=== PATIENT | male | born 1960 | race Caucasian/White ===

== ENCOUNTER → 2020-01-23 | Outpatient (REF) | payer OTHER | LOC: M SMT 12:51 → MERGE 12:51 | PROVIDERS: ATTEND Urology | DX: R31.29 Other microscopic hematuria (principal); R82.89 Other abnormal findings on cytological and histological examination of urine ==

== ENCOUNTER 2020-02-04 10:55 | Day surgery (SDC) | payer OTHER ==
[~2020-02-04] VITALS: Ht 175.3 cm; Wt 100.7 kg
[~2020-02-04 10:55] MED LIST: ASPI81TA85 PO; CETI10CH PO; EMLA CREAM 5GM (LIDOCAINE/PRILOCAINE) TOP PRN; FLUT15.820; LIDOCAINE 1% MDV 20ML VIAL SQ PRN; LISI10TA4 PO; LR 1,000 ML IV ONE; METF500T13 PO; ROSU5TAB5 PO; VENTAER INH; VITAD1000T PO; ceFAZolin SOD 2 GM in IV 1 EA IV ONE
[2020-02-04] MEDS ORDERED: dexameTHASONE 4 MG/ML 1ML VIAL (J1100 PER 1MG) As Ordered ONE (11:54)
[2020-02-04] MEDS ORDERED: ONDANSETRON 4MG/2ML VIAL (J2405) As Ordered ONE (11:54)
[2020-02-04] MEDS ORDERED: ROCURONIUM BROMIDE 50 MG/5 ML VIAL As Ordered ONE (11:54)
[2020-02-04] MEDS ORDERED: LIDOCAINE 2% INJ 100 MG/5 ML SDV (FOR ANES.) As Ordered ONE (11:55)
[2020-02-04] MEDS ORDERED: propofoL 200 MG/20 ML VIAL As Ordered ONE (11:55)
[2020-02-04] MEDS ORDERED: fentaNYL 100 MCG/2 ML INJECTION (J3010) As Ordered ONE ×2 (12:45→13:44)
[2020-02-04] MEDS ORDERED: MIDAZOLAM INJ 2 MG/2 ML VIAL (J2250) As Ordered ONE (12:45)
[2020-02-04] MEDS ORDERED: CONRAY-60 60% 50ML VIAL (Q9961) As Ordered ONE (13:06)
[2020-02-04] MEDS ORDERED: ACETAMINOPHEN 1000MG 100ML IV BTL (OFIRMEV) (J0131 PER 10MG) As Ordered ONE (13:44)
[2020-02-04] MEDS ORDERED: SUGAMMADEX SODIUM 500 MG/5 ML VIAL (BRIDION) As Ordered ONE (13:47)
[2020-02-04] MEDS ORDERED: HYDROmorphone HCL 2 MG/ML 1ML VIAL (J1170) As Ordered ONE (14:24)
[2020-02-04] MEDS ORDERED: FUROSEMIDE 100 MG/10 ML VIAL (J1940) As Ordered ONE (14:52)
[2020-02-04] MEDS ORDERED: ONDANSETRON 4MG/2ML VIAL (J2405) IV PRN (15:45)
[2020-02-04] MEDS ORDERED: PERCOCET 5MG/325MG TAB PO PRN (15:45)
[2020-02-04] MEDS ORDERED: METOCLOPRAMIDE INJ 10MG/2ML VIAL (J2765) IV PRN (15:45)
[2020-02-04] MEDS ORDERED: LR 1,000 ML IV SCH (15:45)
[2020-02-04] MEDS ORDERED: MEPERIDINE INJ 25 MG/ML VIAL (J2175) IV PRN (15:45)
[2020-02-04] MEDS ORDERED: oxyCODONE 5MG TAB PO PRN (15:45)
[2020-02-04] MEDS ORDERED: fentaNYL 100 MCG/2 ML INJECTION (J3010) IV PRN (15:45)
--- NOTE | 2020-02-04 17:05 | REP ---
BILATERAL RETROGRADE PYELOGRAM: 10 C-Arm views are performed. Contrast is injected into both distal ureters. The right pelvicaliceal system and right ureter appear relatively normal in configuration with no filling defect. No ureteral stenosis is visualized. There is no hydroureteronephrosis on the right. Left ureter is mild to moderately dilated. Left pelvicaliceal system is moderately dilated. It is partially opacified with no gross filling defect. I cannot exclude stenosis at the distal end of the left ureter. A left ureteral stent is placed. The proximal end is in the left renal pelvis and the distal end is in the urinary bladder. 12 seconds fluoroscopy time utilized. Electronically Signed by Yaniv Solorio MD 02/05/2020 09:25 A
--- NOTE | 2020-02-04 19:35 | RO ---
DATE OF PROCEDURE: 02/04/2020 PREPROCEDURE DIAGNOSIS: Bladder tumors, gross hematuria. POSTPROCEDURE DIAGNOSIS: Bladder tumors, gross hematuria. PROCEDURE: Cystoscopy, transurethral resection of bladder tumors (greater than 5 cm), bilateral retrograde pyelograms with intraoperative interpretation of images, left ureteral stent placement, urethral meatal dilation, examination under anesthesia. SURGEON: Dr. Ye Goldsmith [employer] SUPERVISOR: None. ANESTHESIA: General. OPERATIVE INDICATIONS: This is a 59-year-old male who was seen in our office with gross hematuria and also on recent CAT scan had areas in his bladder concerning for bladder tumors. He was brought to the operating room today for treatment. DESCRIPTION OF PROCEDURE: The patient was brought to the operating room and general anesthesia was induced. Prophylactic antibiotics were infused. He was placed in the dorsal lithotomy position and a bimanual digital rectal examination was performed. This was notable for a 30-40 gram prostate with no nodules. The bladder was freely mobile, and there were no palpable bladder masses. He was then prepped and draped in the usual sterile fashion. At this point, I attempted to advance in a rigid cystoscope and it would not go into the meatus due to it being too narrow. I therefore dilated the meatus to 30 Filipino using curved metal sounds. I then advanced the scope toward the bladder. Of note, as the scope was advanced through the prostatic urethra, the patient had papillary tumors growing circumferentially at the bladder neck. Once inside the bladder, it was thoroughly examined with both the 30- and the 70-degree lenses. There were several papillary tumors throughout the bladder with the majority of the tumors on the left lateral wall growing down over onto the left hemitrigone. There were also tumors on the anterior wall, as well as tumors growing around the bladder neck. After the bladder was examined, a 5-Filipino open-ended ureteral catheter was utilized to obtain bilateral retrograde pyelograms. The right retrograde pyelogram was negative for filling defects or extravasation or hydronephrosis. The left retrograde pyelogram was negative for filling defects or extravasation, but it was notable for mild to moderate left hydroureteronephrosis down to the level of the bladder. At this point, I traded out the cystoscope for a resectoscope and all of the tumors inside the bladder were resected completely. The base of resection in each area was cauterized with good hemostasis. An [employer] evacuator was utilized to evacuate all of the bladder tumors out of the bladder. Of note, I did have to resect over the left ureteral orifice. Once I was done removing all the tumors, I advanced a wire up the left collecting system, and then advanced a 7-Filipino x 22-32 cm JJ ureteral stent up into the left collecting system. The wire was removed, and there were adequate curls of the stent in the left renal pelvis and in the bladder. At this point, I checked for hemostasis once more, and I confirmed all the visible tumors in the bladder were removed and this was the case. After that was done, the resectoscope was removed, and the 18-Filipino Fournier catheter was inserted into the bladder. The balloon was the filled with 10 mL of sterile water, and the catheter was connected to gravity drainage, and this marked the conclusion of the procedure. The patient was then taken out of the dorsal lithotomy position, awakened from anesthesia, and transferred to the recovery room in stable condition. Estimated blood loss: 5 mL. Complications: None. Specimens: Bladder tumors. PLAN: The patient will followup in the clinic in approximately 1 week for catheter removal. Depending on what his pathology shows, this will dictate when the stent is removed and whether or not he needs additional treatment. SANTY
== END 2020-02-04 17:06 | disposition home or self-care (01) ==
LOC: M SDC 10:55 → MERGE 12:30 → M SDC 17:06
PROVIDERS: ATTEND Urology
DX: C67.9 Malignant neoplasm of bladder, unspecified (principal); N32.9 Bladder disorder, unspecified; I10 Essential (primary) hypertension; E11.9 Type 2 diabetes mellitus without complications; K21.9 Gastro-esophageal reflux disease without esophagitis; Z79.84 Long term (current) use of oral hypoglycemic drugs; Z79.82 Long term (current) use of aspirin; Z79.899 Other long term (current) drug therapy
CPT/HCPCS: 52240; 52332; 74420; 88305; C1769; C2617; J0131; J0690; J1100; J1170; J1940; J2250; J2405; J3010; Q9961

== ENCOUNTER → 2020-03-10 | Outpatient (CLI) | payer OTHER ==
[~2020-03-10] MED LIST changes: +ACET-683 PO; -EMLA CREAM 5GM (LIDOCAINE/PRILOCAINE) TOP PRN; -LIDOCAINE 1% MDV 20ML VIAL SQ PRN; -LR 1,000 ML IV ONE; -ceFAZolin SOD 2 GM in IV 1 EA IV ONE
== END ==
LOC: M LABSMTC 10:48
PROVIDERS: ATTEND Anesthesiology
DX: Z01.818 Encounter for other preprocedural examination (principal); Z11.59 Encounter for screening for other viral diseases
CPT/HCPCS: C8903; U0003

== ENCOUNTER 2020-03-13 11:23 | Day surgery (SDC) | payer OTHER ==
[~2020-03-13] VITALS: Ht 175.3 cm; Wt 95.3 kg
[~2020-03-13 11:23] MED LIST changes: +LIDOCAINE 1% MDV 20ML VIAL SQ PRN; +LR 1,000 ML IV ONE; +ceFAZolin SOD 2 GM in IV 1 EA IV ONE
[2020-03-13] MEDS ORDERED: ROCURONIUM BROMIDE 50 MG/5 ML VIAL As Ordered ONE (13:27)
[2020-03-13] MEDS ORDERED: LIDOCAINE 2% 100MG/5ML SDV (FOR ANES.) As Ordered ONE (13:27)
[2020-03-13] MEDS ORDERED: dexameTHASONE 4 MG/ML 1ML VIAL (J1100 PER 1MG) As Ordered ONE (13:27)
[2020-03-13] MEDS ORDERED: ONDANSETRON 4MG/2ML VIAL As Ordered ONE (13:27)
[2020-03-13] MEDS ORDERED: propofoL 200 MG/20 ML VIAL As Ordered ONE (13:27)
[2020-03-13] MEDS ORDERED: MIDAZOLAM INJ 2MG/2ML VIAL (J2250 PER 1MG) As Ordered ONE (13:28)
[2020-03-13] MEDS ORDERED: fentaNYL 100 MCG/2 ML INJECTION (J3010) As Ordered ONE ×3 (13:28→15:57)
[2020-03-13] MEDS ORDERED: ACETAMINOPHEN 1000MG 100ML IV BTL (OFIRMEV) (J0131 PER 10MG) As Ordered ONE (14:56)
[2020-03-13] MEDS ORDERED: SUGAMMADEX SODIUM 500 MG/5 ML VIAL (BRIDION) As Ordered ONE (15:00)
[2020-03-13] MEDS ORDERED: LABETALOL 100MG/20ML VIAL As Ordered ONE (15:04)
[2020-03-13] MEDS ORDERED: ALBUTEROL 6.7GM INHALER **FOR ANES. CART/OMNICELL ONLY As Ordered ONE (15:14)
[2020-03-13] MEDS ORDERED: oxyCODONE 5MG TAB As Ordered ONE (15:56)
[2020-03-13] MEDS ORDERED: ALBUTEROL SULFATE 2.5 MG/0.5 ML INH NEB SOLN As Ordered ONE (15:57)
[2020-03-13] MEDS: fentaNYL 100 MCG/2 ML INJECTION (J3010) IV PRN ×4 (15:58→16:17)
[2020-03-13] MEDS ORDERED: ONDANSETRON 4MG/2ML VIAL IV PRN (16:00)
[2020-03-13] MEDS ORDERED: ACETAMINOPHEN TAB 650MG DOSE (2X325MG) PO PRN (16:00)
[2020-03-13] MEDS ORDERED: LR 1,000 ML IV SCH (16:00)
[2020-03-13] MEDS ORDERED: oxyCODONE 5MG TAB PO PRN (16:00)
[2020-03-13] MEDS ORDERED: HYDROMORPHONE HCL 0.5 MG/ 0.5 ML SYRINGE (J1170 PER 1) As Ordered ONE (16:20)
[2020-03-13] MEDS: HYDROMORPHONE HCL 0.5 MG/ 0.5 ML SYRINGE (J1170 PER 1) IV PRN ×4 (16:24→17:00)
[2020-03-13] MEDS ORDERED: ALBUTEROL SULFATE 2.5 MG/0.5 ML INH NEB SOLN INH ONE (17:00)
[2020-03-13] MEDS ORDERED: oxyBUTYnin 5 MG TAB PO ONE (17:30)
[2020-03-13] MEDS ORDERED: KETOROLAC 30 MG/ML 1ML VIAL IV PRN (17:30)
[2020-03-13 19:20] VITALS: BP 143/94
--- NOTE | 2020-03-17 16:49 | RO ---
DATE OF PROCEDURE: 03/13/2020 PREPROCEDURE DIAGNOSIS: Bladder cancer. POSTPROCEDURE DIAGNOSIS: Bladder cancer. PROCEDURE: Cystoscopy, restaging transurethral resection of bladder tumors (between 2-5 cm), removal of left ureteral stent. SURGEON: Ye Goldsmith MD ORTHOPEDIC PHYSICIAN ASSISTANT: None. ANESTHESIA: General. OPERATIVE INDICATIONS: This is a 59-year-old male who was diagnosed with high grade bladder cancer invading the lamina propria but not involving the muscularis propria based on a transurethral resection of bladder approximately 6 weeks ago. Given the stage it was recommended he be brought back for a restaging transurethral resection to confirm that he does not have muscle invasion. We also intended to remove his stent at this time. DESCRIPTION OF PROCEDURE: The patient was brought to the operating room and general anesthesia was induced. Prophylactic antibiotics were infused. He was then placed in the dorsal lithotomy position and prepped and draped in the usual sterile fashion. At this point, a resectoscope was inserted into the urethral meatus and advanced into the bladder using the visual obturator. The bladder was then thoroughly examined and no definite tumors were seen inside the bladder. The left ureteral stent was seen. At this point, I resected once again on the left lateral wall and around the ureteral orifice where the bladder tumor was seen previously. I resected into the muscle layer. All the specimen was then removed. It was sent for pathologic analysis using an [facility] evacuator. I then cauterized the base of resection until there was good hemostasis. The left ureteral stent was then removed. I then checked again for any tumors and hemostasis. No tumors were seen and there was good hemostasis. I then removed the resectoscopy and inserted an 18-Andorran Fournier catheter into the bladder. The balloon was filled with 10 mL of sterile water and the catheter was connected to gravity drainage. This marked conclusion of the procedure. The patient was taken out of dorsal lithotomy position, awakened from anesthesia and transported to recovery room in stable condition. ESTIMATED BLOOD LOSS: 10 mL. COMPLICATIONS: None. SPECIMENS: Resection of bladder tumor base. PLAN: The patient will followup in clinic next week to discuss pathology results. SANTY
== END 2020-03-13 19:40 | disposition home or self-care (01) ==
LOC: M SDC 11:23
PROVIDERS: ATTEND Urology
DX: C67.9 Malignant neoplasm of bladder, unspecified (principal); I10 Essential (primary) hypertension; E11.9 Type 2 diabetes mellitus without complications; E78.5 Hyperlipidemia, unspecified; E66.9 Obesity, unspecified; F17.218 Nicotine dependence, cigarettes, with other nicotine-induced disorders; Z79.84 Long term (current) use of oral hypoglycemic drugs; Z79.899 Other long term (current) drug therapy
CPT/HCPCS: 52235; 52310; 88305; J0131; J0690; J1100; J1170; J1885; J2250; J2405; J3010